=== PATIENT | female | born 1980 | race African-American/Black ===

== ENCOUNTER 2018-12-20 05:41 | Emergency (ER) | payer OTHER ==
[~2018-12-20] VITALS: Ht 154.9 cm; Wt 80.7 kg
[2018-12-20] MEDS ORDERED: PROTONIX40 M1 PO (05:53)
[2018-12-20] MEDS ORDERED: SYNTHROID100 MC1 PO (05:53)
[2018-12-20] MEDS ORDERED: LINZESS290 MCG PO (05:53)
[2018-12-20] MEDS ORDERED: UNICOMPLEX M TA1 TA1 PO (05:54)
[2018-12-20] MEDS ORDERED: CLARITIN10 MG PO (05:54)
[2018-12-20] MEDS ORDERED: FISH OIL 1,001000 M2 PO (05:54)
[2018-12-20] MEDS ORDERED: ACETAMINOPHEN-1 EAC1 PO (07:18)
[2018-12-20 07:43] VITALS: BP 122/87
== END 2018-12-20 07:43 | disposition home or self-care (01) ==
LOC: M.ERS 05:41
DX: S01.511A Laceration without foreign body of lip, initial encounter (principal); S60.221A Contusion of right hand, initial encounter; S80.02XA Contusion of left knee, initial encounter; E05.90 Thyrotoxicosis, unspecified without thyrotoxic crisis or storm; Z90.710 Acquired absence of both cervix and uterus; Z88.0 Allergy status to penicillin; Z88.8 Allergy status to other drugs, medicaments and biological substances; W00.0XXA Fall on same level due to ice and snow, initial encounter; Y93.89 Activity, other specified; Y92.89 Other specified places as the place of occurrence of the external cause; Y99.8 Other external cause status

== ENCOUNTER → 2021-03-04 | Outpatient (CLI) | payer OTHER ==
[~2021-03-04] MED LIST: ACETAMINOPHEN-1 EAC1 PO; CLARITIN10 MG PO; FISH OIL 1,001000 M2 PO; LINZESS290 MCG PO; PROTONIX40 M1 PO; SYNTHROID100 MC1 PO; UNICOMPLEX M TA1 TA1 PO
== END ==
LOC: M.CT 09:06
PROVIDERS: ATTEND Internal Medicine
DX: E78.2 Mixed hyperlipidemia (principal); Z82.49 Family history of ischemic heart disease and other diseases of the circulatory system